=== PATIENT | female | born 1935 | race Caucasian/White ===

== ENCOUNTER 2019-05-20 16:58 | Inpatient (IN) | payer MEDICARE, MEDICAID ==
[~2019-05-20] VITALS: Ht 149.9 cm; Wt 54.4 kg
[2019-05-20 16:58] VITALS: BP_SYST 121
[2019-05-20] MEDS ORDERED: ASPIRIN 81 MG TAB.CHEW PO ONE (17:15)
[2019-05-20] MEDS ORDERED: ONDANSETRON 4 MG ODT TAB PO ONE ×2 (17:15→18:15)
[2019-05-20 17:24] LABS: BASOPHILS # (AUTO) 0.1 K/uL (0.0-0.2); BASOPHILS % (AUTO) 0.8 % (0.0-2.0); EOSINOPHILS # (AUTO) 0.3 K/uL (0.0-0.4); EOSINOPHILS % (AUTO) 1.8 % (0.0-4.0); HEMATOCRIT 41.4 % (36-48); HEMOGLOBIN 13.7 g/dL (12.0-16.0); LYMPHOCYTES # (AUTO) 2.2 K/uL (1.0-5.5); LYMPHOCYTES % (AUTO) 11.9 % (20.5-51.5); MEAN CORPUSCULAR HEMOGLOBIN 30 pg (27-31); MEAN CORPUSCULAR HGB CONC 33 % (32-36); MEAN CORPUSCULAR VOLUME 90 fL (79.0-98.0); MONOCYTES # (AUTO) 1.4 K/uL (0.0-1.0); MONOCYTES % (AUTO) 7.6 % (1.7-9.3); NEUTROPHILS # (AUTO) 14.7 K/uL (1.8-7.7); NEUTROPHILS % (AUTO) 77.9 % (40.0-70.0); PLATELET COUNT (AUTO) 316 K/uL (130-430); RED CELL DISTRIBUTION WIDTH 12.9 % (9.0-15.0); WHITE BLOOD COUNT (AUTO) 18.8 K/uL (4.8-10.8)
[2019-05-20 17:29] LABS: ANION GAP 10 (5-15); CALCIUM 8.7 mg/dL (8.4-11.0); CHLORIDE 102 mmol/L (98-107); CREATININE 0.71 mg/dL (0.55-1.30); GLUCOSE 111 mg/dL (70-99); POTASSIUM 4.5 mmol/L (3.5-5.1); SODIUM SERUM 137 mmol/L (136-145); UREA NITROGEN, BLOOD 13 mg/dL (8-21)
[2019-05-20 17:36] LABS: ALANINE AMINOTRANSFERASE 9 U/L (12-78); ALBUMIN 3.4 g/dL (3.4-4.8); ASPARTATE AMINOTRANSFERASE 8 U/L (10-37); TOTAL BILIRUBIN 0.4 mg/dL (0.0-1.0)
[2019-05-20] MEDS ORDERED: ASPIRIN 325 MG TABLET PO ONE (18:15)
[2019-05-20] MEDS ORDERED: IPRATROPIUM/ALBUTEROL SULFATE 3 ML AMPUL.NEB (DUONEB) INH ONE (21:45)
[2019-05-20] MEDS ORDERED: IPRATROPIUM/ALBUTEROL SULFATE 3 ML AMPUL.NEB (DUONEB) ONE (21:53)
[2019-05-20 22:49] LABS: BILIRUBIN,URINE NEGATIVE (NEGATIVE); BLOOD, URINE NEGATIVE (NEGATIVE); CLARITY/URINE SL CLOUDY (CLEAR); COLOR,URINE YELLOW (YELLOW); GLUCOSE,URINE NEGATIVE (NEGATIVE); KETONES,URINE TRACE (NEGATIVE); LEUKOCYTE ESTERASE ,URINE 2+ (NEGATIVE); NITRITE, URINE POSITIVE (NEGATIVE); PH,URINE 5.5 (5.0-8.0); PROTEIN URINE NEGATIVE (NEGATIVE); UROBILINOGEN,URINE 0.2 (0.2-1.0)
[2019-05-20 22:55] VITALS: BP_SYST 111
[2019-05-20 22:59] LABS: BACTERIA,URINE MANY /HPF (None Seen); FINE GRANULAR CASTS,URINE 0-10 /LPF (None Seen); RBC,URINE 0-3 /HPF (0-3)
[2019-05-20 23:00] LABS: MUCUS,URINE 3+ /LPF (None Seen)
[2019-05-21] VITALS (7 sets, daily range): BP systolic 106–127
[2019-05-21] MEDS ORDERED: IPRATROPIUM BROM 0.5 MG/2.5 ML VIAL.NEB (ATROVENT) INH PRN (07:45)
[2019-05-21] MEDS ORDERED: ALBUTEROL SULFATE 0.083% 2.5 MG/3 ML VIAL.NEB INH PRN (07:45)
[2019-05-21] MEDS: cefTRIAXone 1 GM in D5W 50 ML IV SCH (09:14)
[2019-05-21] MEDS ORDERED: ENOXAPARIN SODIUM 40 MG/0.4 ML SYRINGE SUBCUT ONE (11:00)
[2019-05-21] MEDS: AZITHROMYCIN 500 MG in NS 250 ML IV SCH (11:49)
[2019-05-21] MEDS: ACETAMINOPHEN 325 MG TABLET PO PRN ×2 (13:21→19:59)
[2019-05-21] MEDS: IPRATROPIUM BROM 0.5 MG/2.5 ML VIAL.NEB (ATROVENT) INH SCH ×2 (13:36→20:25)
[2019-05-21] MEDS: ALBUTEROL SULFATE 0.083% 2.5 MG/3 ML VIAL.NEB INH SCH ×2 (13:36→20:25)
[2019-05-21] MEDS ORDERED: methylPREDNISolone SOD SUCC/PF 62.5 MG/ML VIAL IVP SCH (14:00)
[2019-05-21] MEDS: methylPREDNISolone SOD SUCC 40 MG/ML VIAL IVP SCH ×2 (15:20→21:52)
[2019-05-22 00:02] VITALS: BP_SYST 109
[2019-05-22] MEDS: IPRATROPIUM BROM 0.5 MG/2.5 ML VIAL.NEB (ATROVENT) INH SCH ×4 (02:21→19:54)
[2019-05-22] MEDS: ALBUTEROL SULFATE 0.083% 2.5 MG/3 ML VIAL.NEB INH SCH ×4 (02:21→19:54)
[2019-05-22] MEDS: ACETAMINOPHEN 325 MG TABLET PO PRN ×3 (04:12→20:19)
[2019-05-22] MEDS: methylPREDNISolone SOD SUCC 40 MG/ML VIAL IVP SCH ×3 (05:23→21:08)
[2019-05-22 06:30] LABS: HEMATOCRIT 34.2 % (36-48); HEMOGLOBIN 11.3 g/dL (12.0-16.0); LYMPHOCYTES # (AUTO) 0.3 K/uL (1.0-5.5); LYMPHOCYTES % (AUTO) 3.3 % (20.5-51.5); MEAN CORPUSCULAR HEMOGLOBIN 31 pg (27-31); MEAN CORPUSCULAR HGB CONC 33 % (32-36); MEAN CORPUSCULAR VOLUME 94 fL (79.0-98.0); MONOCYTES # (AUTO) 0.2 K/uL (0.0-1.0); MONOCYTES % (AUTO) 2.5 % (1.7-9.3); NEUTROPHILS # (AUTO) 8.4 K/uL (1.8-7.7); NEUTROPHILS % (AUTO) 94.2 % (40.0-70.0); PLATELET COUNT (AUTO) 168 K/uL (130-430); RED BLOOD CELL COUNT(AUTO) 3.63 MIL/uL (4.2-6.2); RED CELL DISTRIBUTION WIDTH 14.1 % (9.0-15.0); WHITE BLOOD COUNT (AUTO) 8.9 K/uL (4.8-10.8)
[2019-05-22] MEDS: AZITHROMYCIN 500 MG in NS 250 ML IV SCH (07:58)
[2019-05-22 08:00] VITALS: BP_SYST 114
[2019-05-22] MEDS: ENOXAPARIN SODIUM 40 MG/0.4 ML SYRINGE SUBCUT SCH (09:19)
[2019-05-22] MEDS: cefTRIAXone 1 GM in D5W 50 ML IV SCH (09:19)
[2019-05-22 12:00] VITALS: BP_SYST 129
[2019-05-22 16:00] VITALS: BP_SYST 133
[2019-05-23 00:50] VITALS: BP_SYST 135
[2019-05-23] MEDS: ALBUTEROL SULFATE 0.083% 2.5 MG/3 ML VIAL.NEB INH SCH ×4 (01:12→20:25)
[2019-05-23] MEDS: IPRATROPIUM BROM 0.5 MG/2.5 ML VIAL.NEB (ATROVENT) INH SCH ×4 (01:13→20:25)
[2019-05-23 04:00] VITALS: BP_SYST 115
[2019-05-23] MEDS: methylPREDNISolone SOD SUCC 40 MG/ML VIAL IVP SCH ×3 (06:00→21:12)
[2019-05-23 06:52] LABS: BASOPHILS % (AUTO) 0.1 % (0.0-2.0); HEMATOCRIT 33.1 % (36-48); LYMPHOCYTES # (AUTO) 0.5 K/uL (1.0-5.5); LYMPHOCYTES % (AUTO) 5.2 % (20.5-51.5); MEAN CORPUSCULAR HEMOGLOBIN 31 pg (27-31); MEAN CORPUSCULAR HGB CONC 33 % (32-36); MEAN CORPUSCULAR VOLUME 93 fL (79.0-98.0); MONOCYTES # (AUTO) 0.5 K/uL (0.0-1.0); MONOCYTES % (AUTO) 5.4 % (1.7-9.3); NEUTROPHILS # (AUTO) 8.5 K/uL (1.8-7.7); NEUTROPHILS % (AUTO) 89.3 % (40.0-70.0); PLATELET COUNT (AUTO) 172 K/uL (130-430); RED BLOOD CELL COUNT(AUTO) 3.56 MIL/uL (4.2-6.2); RED CELL DISTRIBUTION WIDTH 14.6 % (9.0-15.0); WHITE BLOOD COUNT (AUTO) 9.5 K/uL (4.8-10.8)
[2019-05-23 07:03] LABS: ALANINE AMINOTRANSFERASE 21 U/L (12-78); ALBUMIN 2.6 g/dL (3.4-4.8); ANION GAP 6 (5-15); ASPARTATE AMINOTRANSFERASE 22 U/L (10-37); CHLORIDE 109 mmol/L (98-107); CREATININE 0.77 mg/dL (0.55-1.30); GLUCOSE 138 mg/dL (70-99); POTASSIUM 4.1 mmol/L (3.5-5.1); SODIUM SERUM 143 mmol/L (136-145); TOTAL BILIRUBIN 0.2 mg/dL (0.0-1.0); UREA NITROGEN, BLOOD 15 mg/dL (8-21)
[2019-05-23 07:53] VITALS: BP_SYST 132
[2019-05-23] MEDS: AZITHROMYCIN 500 MG in NS 250 ML IV SCH (08:45)
[2019-05-23] MEDS: cefTRIAXone 1 GM in D5W 50 ML IV SCH (08:46)
[2019-05-23] MEDS: ENOXAPARIN SODIUM 40 MG/0.4 ML SYRINGE SUBCUT SCH (08:48)
[2019-05-23] MEDS: ACETAMINOPHEN 325 MG TABLET PO PRN ×2 (09:53→23:34)
[2019-05-23] MEDS ORDERED: MEDROL PACK PO (11:10)
[2019-05-23] MEDS ORDERED: AMOX-426 PO (11:11)
[2019-05-23] MEDS ORDERED: ALBMDI INH (11:14)
[2019-05-23 13:14] VITALS: BP_SYST 150
[2019-05-23 16:06] VITALS: BP_SYST 141
[2019-05-23] MEDS: PIPERACILLIN/TAZO 3.375/DEX-IS 50 ML IV SCH ×2 (17:32→21:18)
[2019-05-24 01:04] VITALS: BP_SYST 145
[2019-05-24] MEDS: ALBUTEROL SULFATE 0.083% 2.5 MG/3 ML VIAL.NEB INH SCH ×4 (01:19→20:03)
[2019-05-24] MEDS: IPRATROPIUM BROM 0.5 MG/2.5 ML VIAL.NEB (ATROVENT) INH SCH ×4 (01:19→20:02)
[2019-05-24] MEDS: PIPERACILLIN/TAZO 3.375/DEX-IS 50 ML IV SCH ×4 (06:05→20:55)
[2019-05-24] MEDS: methylPREDNISolone SOD SUCC 40 MG/ML VIAL IVP SCH (06:06)
[2019-05-24 08:00] VITALS: BP_SYST 120
[2019-05-24] MEDS: ENOXAPARIN SODIUM 40 MG/0.4 ML SYRINGE SUBCUT SCH (08:30)
[2019-05-24] MEDS: ACETAMINOPHEN 325 MG TABLET PO PRN ×2 (10:57→23:57)
[2019-05-24 12:35] VITALS: BP_SYST 165
[2019-05-24] MEDS ORDERED: BUDESONIDE 0.5 MG/2 ML AMPUL.NEB INH ONE (12:45)
[2019-05-24 12:50] VITALS: BP_SYST 154
[2019-05-24] MEDS ORDERED: MAG-AL HYDROX/SIMETH 30 ML UDC PO ONE (17:00)
[2019-05-24] MEDS: cloNIDine HCL 0.1 MG TABLET PO PRN (17:19)
[2019-05-24 20:00] VITALS: BP_SYST 150
[2019-05-24] MEDS: BUDESONIDE 0.5 MG/2 ML AMPUL.NEB INH SCH (20:02)
[2019-05-24] MEDS: PREDNISONE 20 MG TABLET PO SCH (20:56)
[2019-05-25 00:30] VITALS: BP_SYST 145
[2019-05-25] MEDS: ALBUTEROL SULFATE 0.083% 2.5 MG/3 ML VIAL.NEB INH SCH ×4 (01:48→19:33)
[2019-05-25] MEDS: IPRATROPIUM BROM 0.5 MG/2.5 ML VIAL.NEB (ATROVENT) INH SCH ×4 (01:48→19:33)
[2019-05-25] MEDS: PIPERACILLIN/TAZO 3.375/DEX-IS 50 ML IV SCH ×4 (05:49→21:25)
[2019-05-25 08:00] VITALS: BP_SYST 170
[2019-05-25 08:04] LABS: BASOPHILS % (AUTO) 0.1 % (0.0-2.0); EOSINOPHILS % (AUTO) 0.1 % (0.0-4.0); HEMATOCRIT 35.3 % (36-48); HEMOGLOBIN 11.7 g/dL (12.0-16.0); LYMPHOCYTES # (AUTO) 0.6 K/uL (1.0-5.5); LYMPHOCYTES % (AUTO) 11.7 % (20.5-51.5); MEAN CORPUSCULAR HEMOGLOBIN 31 pg (27-31); MEAN CORPUSCULAR HGB CONC 33 % (32-36); MEAN CORPUSCULAR VOLUME 93 fL (79.0-98.0); MONOCYTES # (AUTO) 0.4 K/uL (0.0-1.0); MONOCYTES % (AUTO) 7.4 % (1.7-9.3); NEUTROPHILS # (AUTO) 3.9 K/uL (1.8-7.7); NEUTROPHILS % (AUTO) 80.7 % (40.0-70.0); PLATELET COUNT (AUTO) 185 K/uL (130-430); RED CELL DISTRIBUTION WIDTH 14.2 % (9.0-15.0); WHITE BLOOD COUNT (AUTO) 4.8 K/uL (4.8-10.8)
[2019-05-25 08:05] LABS: ANION GAP 3 (5-15); CALCIUM 8.8 mg/dL (8.4-11.0); CHLORIDE 105 mmol/L (98-107); CREATININE 0.66 mg/dL (0.55-1.30); GLUCOSE 106 mg/dL (70-99); POTASSIUM 3.9 mmol/L (3.5-5.1); SODIUM SERUM 138 mmol/L (136-145); UREA NITROGEN, BLOOD 12 mg/dL (8-21)
[2019-05-25] MEDS: cloNIDine HCL 0.1 MG TABLET PO PRN (08:13)
[2019-05-25] MEDS: ENOXAPARIN SODIUM 40 MG/0.4 ML SYRINGE SUBCUT SCH (08:14)
[2019-05-25] MEDS: PREDNISONE 20 MG TABLET PO SCH ×2 (08:14→21:24)
[2019-05-25] MEDS: BUDESONIDE 0.5 MG/2 ML AMPUL.NEB INH SCH ×2 (08:37→19:49)
[2019-05-25] MEDS ORDERED: PREDNISONE 20 MG TABLET PO SCH (09:00)
[2019-05-25] MEDS: ACETAMINOPHEN 325 MG TABLET PO PRN ×2 (10:49→21:35)
[2019-05-25 13:55] VITALS: BP_SYST 153
[2019-05-25 16:55] VITALS: BP_SYST 139
[2019-05-25] MEDS ORDERED: MAG-AL HYDROX/SIMETH 30 ML UDC PO PRN (18:30)
[2019-05-26 00:08] VITALS: BP_SYST 164
[2019-05-26] MEDS: IPRATROPIUM BROM 0.5 MG/2.5 ML VIAL.NEB (ATROVENT) INH SCH ×2 (01:00→11:17)
[2019-05-26] MEDS: ALBUTEROL SULFATE 0.083% 2.5 MG/3 ML VIAL.NEB INH SCH ×2 (01:00→11:16)
[2019-05-26] MEDS: PIPERACILLIN/TAZO 3.375/DEX-IS 50 ML IV SCH ×2 (06:11→12:20)
[2019-05-26 07:30] VITALS: BP_SYST 146
[2019-05-26 08:00] VITALS: BP_SYST 146
[2019-05-26] MEDS: PREDNISONE 20 MG TABLET PO SCH (08:50)
[2019-05-26] MEDS: ENOXAPARIN SODIUM 40 MG/0.4 ML SYRINGE SUBCUT SCH (08:50)
[2019-05-26] MEDS ORDERED: PANTOPRAZOLE SODIUM 40 MG TAB PO SCH (09:00)
[2019-05-26] MEDS ORDERED: PRED20TA PO (10:24)
[2019-05-26] MEDS ORDERED: LEVO500T89 PO (10:24)
[2019-05-26 11:11] VITALS: BP_SYST 97
[2019-05-26] MEDS: BUDESONIDE 0.5 MG/2 ML AMPUL.NEB INH SCH (11:17)
[2019-05-26 12:00] VITALS: BP_SYST 149
[2019-05-26] MEDS: ACETAMINOPHEN 325 MG TABLET PO PRN (12:19)
== END 2019-05-26 13:35 | disposition home health service (06) | DRG 871 ==
LOC: SED 16:58 → STU 21:58 → OBSVTOIN 05-21 07:35 → SMU 05-23 23:25
PROVIDERS: ADMIT Internal Medicine Hospice and Palliative Medicine; ATTEND Internal Medicine Hospice and Palliative Medicine
DX: A41.9 Sepsis, unspecified organism (principal); I21.A1 Myocardial infarction type 2; J44.1 Chronic obstructive pulmonary disease with (acute) exacerbation; N39.0 Urinary tract infection, site not specified; Z16.24 Resistance to multiple antibiotics; J44.0 Chronic obstructive pulmonary disease with (acute) lower respiratory infection; B96.20 Unspecified Escherichia coli [E. coli] as the cause of diseases classified elsewhere; E78.5 Hyperlipidemia, unspecified; I10 Essential (primary) hypertension; I25.10 Atherosclerotic heart disease of native coronary artery without angina pectoris; Z96.611 Presence of right artificial shoulder joint; Z96.612 Presence of left artificial shoulder joint; I44.7 Left bundle-branch block, unspecified; E78.00 Pure hypercholesterolemia, unspecified; J20.9 Acute bronchitis, unspecified; R07.89 Other chest pain; Z87.891 Personal history of nicotine dependence; Z90.710 Acquired absence of both cervix and uterus; Z88.5 Allergy status to narcotic agent; Z88.2 Allergy status to sulfonamides; Z79.899 Other long term (current) drug therapy; Z90.49 Acquired absence of other specified parts of digestive tract
CPT/HCPCS: 36415; 36600; 71045; 80048; 80053; 81000-TC; 82550-TC; 82803-TC; 83605; 83880; 84484; 85025; 85379; 85651-TC; 86140; 87040-TC; 87086; 87186-TC; 93005; 93306; 94640; 94760; 99285; G0378; J0456; J0696; J1030; J1650; J2543; J7050; J7060; J7512; J7613; J7626; Q0162